=== PATIENT | female | born 1990 | race Caucasian/White ===

== ENCOUNTER → 2020-08-01 15:42 | Outpatient (CLI) | payer BC, SELFPAY ==
--- NOTE | ~2020-08-01 | US_ITS ---
EXAMINATION: US OB >= 14 weeks Fetus DATE: 08/01/2020 16:29 INDICATION: Encounter for screening, unspecified. TECHNIQUE: Real-time ultrasound of the pelvis was performed. COMPARISON: None. FINDINGS: There is a single living fetus in breech presentation. The placenta is anterior, 2.2 cm in the cervi x. heart rate is 146 beats per minute (bpm). The amniotic fluid volume is subjectively normal. The following biometric data were obtained: Biparietal diameter (BPD): 4.5 cm; head circumference (HC): 17.3 cm; abdominal circumference (AC): 14 .4 cm; femur length (FL): 3.0 cm. These measurements are concordant. Estimated weight is 296 g +/- 44 g, which correlates with 82nd percentile when 12/27/20 is used as estimated date of delivery. As single measurements, these parameters are each equal to the following estimated gestational ages w ith ranges of +/- 2 standard deviations: BPD: 19 weeks 5 days (18 weeks 0 days - 21 weeks 3 days). HC: 19 weeks 6 days (18 weeks 3 days - 21 weeks 2 days). AC: 19 weeks 5 days (17 weeks 5 days - 21 weeks 6 days). FL: 19 weeks 1 days (17 weeks 2 days - 20 weeks 6 days). estimated gestational age based solely on measurements from this exam is 19 weeks 4 days +/- 1 weeks 3 days. The cerebral ventricles, cerebellum, cisterna magna, nuchal fold, and visualized portions of the spin e are normal. The heart is normal. The diaphragm, stomach, kidneys, and bladder are normal. There are two umbilical arteries to yield a 3-vessel cord. The cord insertion is normal. IMPRESSION: 1. Single living fetus in breech presentation. 2. Estimated weight is 296 g +/- 44 g, which correlates with 82nd percentile when 12/27/20 is used as estimated date of delivery. 3. Normal anatomic survey. Reviewed, dictated and finalized at location A. IMPRESSION: 1. Single living fetus in breech presentation. 2. Estimated weight is 296 g +/- 44 g, which correlates with 82nd percen tile when 12/27/20 is used as estimated date of delivery. 3. Normal anatomic survey.
== END ==
PROVIDERS: Visit Provider Obstetrics & Gynecology
DX: Z34.92 Encounter for supervision of normal pregnancy, unspecified, second trimester (principal); Z3A.19 19 weeks gestation of pregnancy
CPT/HCPCS: 76805

== ENCOUNTER → 2022-07-12 15:17 | Outpatient (CLI) | payer BC, SELFPAY ==
--- NOTE | ~2022-07-12 | US_ITS ---
EXAMINATION: US OB /maternal detail DATE: 07/12/2022 15:54 INDICATION: anatomic survey. TECHNIQUE: Real-time ultrasound of the pelvis was performed. COMPARISON: None. FINDINGS: There is a single living fetus in transverse lie. The placenta is posterior, 3.1 cm from the cervix. The cervical length is 3.5 cm on transabdominal images, which is normal. heart rate is 150 kassie ts per minute (bpm). The amniotic fluid volume is subjectively normal. The following biometric data were obtained: Biparietal diameter (BPD): 4.3 cm; head circumference (HC): 17.2 cm; abdominal circumference (AC): 14 .9 cm; femur length (FL): 3.4 cm. These measurements are discordant with low cephalic index. Estimated weight is 342 g +/- 51 g, which correlates with the 83rd percentile when 12/02/22 is u sed as estimated date of delivery. As single measurements, these parameters are each equal to the following estimated gestational ages: BPD: 18 weeks 6 days. HC: 19 weeks 6 days. AC: 20 weeks 1 days. FL: 20 weeks 5 days. estimated gestational age based solely on measurements from this exam is 19 weeks 6 days +/- 1 weeks 3 days. The cerebral ventricles, cerebellum, cisterna magna, nuchal fold, lip, and visualized portions of the spine are normal. The heart is normal. The diaphragm, stomach, kidneys, and bladder are normal. Ther e are two umbilical arteries to yield a 3-vessel cord. The cord insertion is normal. IMPRESSION: 1. Single living fetus in transverse lie. 2. Estimated weight is 342 g +/- 51 g, which correlates with the 83rd percentile when 12/02/22 is used as estimated date of delivery. 3. Normal anatomic survey. 4. Discordant biometrics with low cephalic index. Reviewed, dictated and finalized at location E. IMPRESSION: 1. Single living fetus in transverse lie. 2. Estimated weight is 342 g +/- 51 g, which correlates with the 83rd pe rcentile when 12/02/22 is used as estimated date of delivery. 3. Normal anatomic survey. 4. Discordant biometrics with low cephalic index.
== END ==
PROVIDERS: PCP Obstetrics & Gynecology Gynecologic Oncology; Visit Provider Obstetrics & Gynecology Gynecologic Oncology
DX: Z36.9 Encounter for antenatal screening, unspecified (principal); Z3A.19 19 weeks gestation of pregnancy
CPT/HCPCS: 76805